=== PATIENT | male | born 1965 | race Caucasian/White ===

== ENCOUNTER 2022-11-26 21:45 | Emergency (ER) | payer SELFPAY ==
[2022-11-26 22:02] LABS: BILIRUBIN,URINE NEGATIVE (NEGATIVE); GLUCOSE, URINE (UA) NEGATIVE (NEGATIVE); KETONES,URINE (UA) 15 mg/dL (NEGATIVE); LEUKOCYTE ESTERASE, URINE NEGATIVE (NEGATIVE); NITRITE,URINE NEGATIVE (NEGATIVE); OCCULT BLOOD,URINE LARGE (NEGATIVE); PH,URINE 5.5 PH (5.0-7.5); PROTEIN,URINE NEGATIVE (NEGATIVE); UROBILINOGEN,URINE 0.2 (NORMAL) E.U./dL (NORMAL)
[2022-11-26 22:03] LABS: CLARITY,URINE CLEAR (CLEAR)
[2022-11-26 22:08] LABS: BASOPHILS % (AUTO) 0.5 %; EOSINOPHILS # (AUTO) 0.1 10^3/uL (0.0-0.7); EOSINOPHILS % (AUTO) 0.9 %; HCT - HEMATOCRIT 46.8 % (42.0-52.0); HGB - HEMOGLOBIN 15.9 g/dL (14.0-18.0); LYMPHOCYTES # (AUTO) 1.4 10^3/uL (1.5-3.5); LYMPHOCYTES % (AUTO) 25.7 %; MEAN CORPUSCULAR HEMOGLOBIN 30.6 pg (27.0-31.0); MEAN CORPUSCULAR VOLUME 90.2 fL (80.0-94.0); MONOCYTES # (AUTO) 0.5 10^3/uL (0.0-1.0); MONOCYTES % (AUTO) 9.3 %; NEUTROPHILS # (AUTO) 3.5 10^3/uL (1.5-6.6); NEUTROPHILS % (AUTO) 63.4 %; PLT - PLATELET COUNT 239 10^3/uL (130-450); RED BLOOD COUNT 5.19 10^6/uL (4.70-6.10); RED CELL DISTRIBUTION WIDTH 12.1 % (12.0-15.0); WHITE BLOOD COUNT 5.6 x10^3/uL (4.8-10.8)
[2022-11-26 22:11] LABS: BACTERIA,URINE None Seen /HPF (None Seen); MUCUS,URINE Marked Strands; SQUAMOUS EPITHELIAL CELL,UR NONE SEEN (<= Few); WBC,URINE 0-3 /HPF (0-3)
[2022-11-26 22:21] LABS: ALBUMIN 4.6 g/dL (3.2-5.5); ALBUMIN/GLOBULIN RATIO 1.6 (1.0-2.2); BILIRUBIN,TOTAL 0.8 mg/dL (0.2-1.0); POTASSIUM 4.1 mmol/L (3.5-5.0); TOTAL PROTEIN 7.4 g/dL (6.7-8.2)
--- NOTE | 2022-11-26 23:35 | ED Physician Documentation ---
PD HPI ABD PAIN - Stated complaint Stated Complaint: ABD PX - Chief complaint Chief Complaint: Abd Pain - History obtained from History obtained from: Patient - Additional information Additional information: HPI from patient. Patient complains of sudden onset of left flank pain at approximately 7 PM tonight while at home at rest. Pain is associate with nausea and vomiting. There are no exacerbating or ameliorating factors, except patient says he had 15 to 20 minutes of relief after vomiting. He has never had this pain before. Denies fever. The pain persist in the left flank, but has gradually radiated down to also involve the left lower quadrant of the lateral and anterior abdomen. Pain has been waxing and waning, at its worst was 9 (out of 10), currently 2 out of 10. Review of Systems Constitutional: reports: Reviewed and negative Cardiac: reports: Reviewed and negative Respiratory: reports: Reviewed and negative GI: reports: Abdominal Pain, Nausea, Vomiting : denies: Dysuria, Frequency, Hematuria PD PAST MEDICAL HISTORY - Past Medical History Past Medical History: No - Present Medications Home Medications: Ambulatory Orders Medication Instructions Recorded Confirmed Ondansetron Odt [Zofran] 4 mg TL Q6H PRN #14 tablet 11/27/22 Oxycodone HCl/Acetaminophen 1 - 2 each PO Q6H PRN #14 tablet 11/27/22 [Percocet 5-325 mg Tablet] Tamsulosin [Flomax] 0.4 mg PO DAILY #14 cap 11/27/22 - Allergies Allergies/Adverse Reactions: Allergies Allergy/AdvReac Type Severity Reaction Status Date / Time No Known Drug Allergies Allergy Verified 11/26/22 21:48 PD ED PE NORMAL - Vitals Vital signs reviewed: Yes - General General: Alert and oriented X 3, No acute distress, Well developed/nourished - Cardiac Cardiac: RRR, No murmur - Respiratory Respiratory: No respiratory distress, Clear bilaterally - Abdomen Abdomen: Normal bowel sounds, Soft, Non tender, Non distended - Back Back: No CVA TTP Results - Vitals Vitals: Vital Signs - 24 hr 11/26/22 11/26/22 11/27/22 21:48 23:36 01:00 Temperature 36.5 C Heart Rate 60 55 L 56 L Respiratory 24 20 16 Rate Blood Pressure 118/60 127/81 H 111/72 O2 Saturation 100 100 94 08/31/23 02:45 Temperature Heart Rate 62 Respiratory 16 Rate Blood Pressure 117/77 O2 Saturation 97 Oxygen O2 Source Room air - Labs Labs: Laboratory Tests 11/26/22 11/26/22 11/26/22 21:55 22:05 22:05 WBC 5.6 RBC 5.19 Hgb 15.9 Hct 46.8 MCV 90.2 MCH 30.6 MCHC 34.0 RDW 12.1 Plt Count 239 MPV 11.0 Neut # (Auto) 3.5 Lymph # (Auto) 1.4 L [place] # (Auto) 0.5 Eos # (Auto) 0.1 Baso # (Auto) 0.0 Absolute Nucleated RBC 0.00 Nucleated RBC % 0.0 Sodium 138 Potassium 4.1 Chloride 105 Carbon Dioxide 23 Anion Gap 10.0 BUN 18 Creatinine 1.0 Estimated GFR (MDRD) 76 L Glucose 130 H Calcium 9.0 Total Bilirubin 0.8 AST 25 ALT 21 Alkaline Phosphatase 70 Total Protein 7.4 Albumin 4.6 Globulin 2.8 Albumin/Globulin Ratio 1.6 Lipase 43 Urine Color YELLOW Urine Clarity CLEAR Urine pH 5.5 Ur Specific [place] 1.025 Urine Protein NEGATIVE Urine Glucose (UA) NEGATIVE Urine Ketones 15 H Urine Occult Blood LARGE H Urine Nitrite NEGATIVE Urine Bilirubin NEGATIVE Urine Urobilinogen 0.2 (NORMAL) Ur Leukocyte Esterase NEGATIVE Urine RBC 11-25 H Urine WBC 0-3 Ur Squamous Epith Cells NONE SEEN Urine Crystals 11-25 Uric Acid Urine Bacteria None Seen Urine Mucus Marked Strands Ur Microscopic Review INDICATED Urine Culture Comments NOT INDICATED - Rads (name of study) CT A/P Relevant Findings:: Prelim report reviewed, See rad report PD Medical Decision Making - ED course Complexity details: reviewed results, re-evaluated patient, considered differential, d/w patient ED course: Tests ordered by my colleague, results reviewed by me: CBC, ER abdominal panel, urinalysis. There are no abnormalities on these tests (mild hyperglycemia). Urinalysis has large blood on macroscopy, 11-12 RBC per high-powered field on microscopy, as well as calcium oxalate crystals. Patient is given 30 mg Toradol IV. He has been vomiting ([employer]) and thus is also given 1 L normal saline for repletion of fluids. He remains in NAD during ED stay under my observation (NAD when I first evaluate him, NAD on reevaluation). He describes having had severe flank pain [employer] with n/v. Ct A/P shows 4mm calculus in distal left UVJ with mild hyronephroureter. Results d/w patient along with prognosis and typical approach (follow up with urology, possibly wait for passage vs procedure for stone retrieval). He is given tamsulosin in ED along with take-home packs of percocet and zofran, and prescriptions for all three of these medicines. Return precautions also discussed. We discussed e-prescription, but patient prefers to have paper prescriptions in hand. Unfortunately, he left/was discharged prior to these being given to him. I called patient in the AM and left two voice mails informing him that the prescriptions can be picked up (they are at the ED nurse's station). Departure - Departure Disposition: 01 Home, Self Care Clinical Impression: Renal colic on left side Condition: Good Instructions: ED Stone Renal W Colic Follow-Up: Jasen Ramos MD [Provider Admit Priv/Credential] - CARROL REYNOLDS MD [Primary Care Provider] - Prescriptions: Tamsulosin [Flomax] 0.4 mg PO DAILY #14 cap Oxycodone HCl/Acetaminophen [Percocet 5-325 mg Tablet] 1 - 2 each PO Q6H PRN #14 tablet PRN Reason: pain Ondansetron Odt [Zofran] 4 mg TL Q6H PRN #14 tablet PRN Reason: Nausea / Vomiting Comments: Your symptoms are due to a left-sided kidney stone. It is medium-size (4 mm). You are being provided prescriptions for Percocet (narcotic/opiate pain medication), ondansetron (antinausea medication), and tamsulosin (medication that can decrease time to kidney stone passing and increased odds of it passing). Forms: PCP List Discharge Date/Time: 11/27/22 02:46
[2022-11-26] MEDS ORDERED: KETOROLAC 30 MG/ML VIAL IVP STA (23:46)
[2022-11-26] MEDS ORDERED: SODIUM CHLORIDE 0.9% 1,000 ML IV STA (23:52)
--- NOTE | 2022-11-27 00:55 | CT Report ---
PROCEDURE: ABDOMEN/PELVIS WO INDICATIONS: left flank pain TECHNIQUE: A CT scan of the abdomen and pelvis was performed without the use of intravenous contrast. Images we re recorded and evaluated at appropriate window settings. Reformats: coronal and sagittal. For radiat ion dose reduction, the following was used: automated exposure control, adjustment of mA and/or kV ac cording to patient size. COMPARISON: None. FINDINGS: Image quality: Excellent. Lung bases and heart: Unremarkable. Liver: No solid mass. Gallbladder and biliary tree: Cholelithiasis without wall thickening. No biliary dilation. Spleen: No splenomegaly. Pancreas: No pancreatic ductal dilation. Adrenals: No adrenal nodule. Kidneys and ureters: Mild left-sided hydronephroureter. Obstructing 4 mm stone in the left UVJ. Moder ate burden of punctate, nonobstructing right-sided nephrolithiasis. Partial duplex left-sided renal c ollecting system. Bowel and peritoneum: No bowel distension. No pathologic free fluid. Lymph nodes: No central or retroperitoneal adenopathy. Vessels: No infrarenal aortic aneurysm. PELVIS Reproductive organs: Unremarkable. Bladder: No wall thickness, accounting for underdistention. Pelvic lymph nodes: No pelvic adenopathy by size criteria. Bones: No aggressive osseous abnormality. Other: Tiny umbilical hernia containing fat. IMPRESSION: Obstructing 4 mm stone in the left UVJ, resulting in mild left-sided hydronephroureter. Moderate burden of punctate, nonobstructing right-sided nephrolithiasis. Partial duplex left-sided renal collecting system. Reviewed by: Monster Degroot on 11/27/2022 12:53 AM PDT Approved by: Monster Degroot on 11/27/2022 12:53 AM PDT Station ID: [id number]
[2022-11-27] MEDS ORDERED: oxyCODONE/ACET 5/325 Prepack 4 PO STA (02:25)
[2022-11-27] MEDS ORDERED: ONDANSETRON ODT 4 MG Prepack 2 TL PRN (02:26)
[2022-11-27] MEDS ORDERED: TAMSULOSIN 0.4 MG CAPSULE PO STA (02:26)
[2022-11-27] MEDS ORDERED: ONDANSETRON ODT 4 MG Prepack 2 TL ONE (03:18)
[2022-11-27 11:02] VITALS: BP 117/77; O2SAT 97
== END 2022-11-27 02:46 | disposition home or self-care (01) ==
LOC: ED 21:45
DX: N20.1 Calculus of ureter (principal)
CPT/HCPCS: 36415; 74176; 80053; 81001; 83690; 85025; 96374; 99284; A9270; 81003; 87086